=== PATIENT | male | born 1970 | race African-American/Black ===

== ENCOUNTER 2016-11-16 16:43 | Emergency (ER) | payer MEDICAID ==
[~2016-11-16] VITALS: Wt 82.5 kg
[~2016-11-16 16:43] MED LIST: ALBU8.5H5 INH; HYDR-3498 PO; PRED20TA PO
[2016-11-16] MEDS ORDERED: KETOROLAC 60 MG INJ IM STA (17:26)
[2016-11-16] MEDS ORDERED: CYCL-319 PO (17:29)
[2016-11-16] MEDS ORDERED: NAPR-260 PO (17:29)
--- NOTE | 2016-11-16 17:33 | ERD ---
ER Documentation Chief Complaint Date/Time DATE: 11/16/16 TIME: 17:31 Chief Complaint left lower backpain non traumatic for the past few months intermittent HPI This is a 46-year-old male presenting to the emergency room complaining of right lower back pain for the past few days. Patient states that he has left lower back pain for the past 6 months that comes and goes and now it started on the right. Patient denies any trauma. He rates the pain 7 out of 10. He states the pain starts when he sits. He denies any saddle anesthesia, bladder or bowel incontinence, or fever ROS All systems reviewed and are negative except as per history of present illness. Medications Home Meds Active Scripts Cyclobenzaprine Hcl* (Cyclobenzaprine Hcl*) 10 Mg Tablet, 10 MG PO TID, #15 TAB Prov:FROILAN CUELLO PA-C 11/16/16 Naproxen* (Naprosyn*) 500 Mg Tablet, 500 MG PO BID Y for PAIN AND/OR INFLAMMATION, #30 TAB Prov:FROILAN CUELLO PA-C 11/16/16 Albuterol Sulfate* (Albuterol Sulfate* HFA) 8.5 Gm Hfa.aer.ad, 1-2 PUFF INH Q4 Y for SHORTNESS OF BREATH, #1 EA Prov:JENNIFER CHAO 08/25/15 Prednisone* (Prednisone*) 20 Mg Tab, 40 MG PO DAILY for 4 Days, TAB Prov:JENNIFER CHAO 08/25/15 Hydrocodone Bit-Acetaminophen* ([place]*) 5-325 Mg Tab, 1 TAB PO Q6 Y for PAIN, # 20 TAB Prov:JENNIFER CHAO 06/01/15 Allergies Allergies: Coded Allergies: No Known Allergy (Unverified , 06/01/15) PMhx/Soc History of Surgery: No Anesthesia Reaction: No Hx Neurological Disorder: No Hx Respiratory Disorders: Yes (ASTHMA) Hx Cardiac Disorders: No Hx Psychiatric Problems: No Hx Miscellaneous Medical Probl: No Hx Alcohol Use: No Hx Substance Use: No Hx Tobacco Use: No Physical Exam Vitals Vital Signs Date Time Temp Pulse Resp B/P Pulse Ox O2 Delivery O2 Flow Rate FiO2 11/16/16 16:49 98.6 51 20 137/85 97 Physical Exam GENERAL: WD/WN, in no apparent distress, non-toxic appearing HENT: NC/AT EYES: Conjunctiva normal NECK: Supple PULM: Normal labored breathing CV: Good capillary refill GI: Non-distended, no guarding BACK: no deformities noted, normal spinal curvature, NTTP on lumbar region, non- tender on spine midline, pain with range of motion EXT: No clubbing, cyanosis, or edema NEURO: Moves on all fours, sensation intact, normal gait SKIN: intact PSYCH: Normal mood Results 24 hrs Current Medications Medications (Trade) Dose Ordered Sig/Sloan Route PRN Reason Start Time Stop Time Status Last Admin Dose Admin Ketorolac Tromethamine (Toradol) 60 mg ONCE STAT IM 11/16/16 17:26 11/16/16 17:27 DC Procedures/MDM 36-year-old male presents to the ER with BL lumbar back pain when sitting , low suspicion for spinal abscess, vertebral fracture, cauda equina syndrome, spinal stenosis due to physical examination. Patient was nontender to palpation on his back or his spine, pain was reproduced with sitting down. In the ED a Toradol injection 60 mg IM was given. Patient is neurovascularly intact. Prescriptions naproxen and Flexeril was given to patient, discussed to return to the ED if not improving as expected or follow-up with a primary care physician. Patient understood and agreed with this plan. Departure Diagnosis: Primary Impression: Back pain Back pain location: low back pain Chronicity: chronic Back pain laterality : bilateral Sciatica presence: without sciatica Qualified Code: M54.5 - Chronic bilateral low back pain without sciatica Condition: Stable Patient Instructions: Back Pain (Acute Or Chronic) Referrals: NO PRIMARY,CARE PHYSICIAN (PCP) [facility] YOU HAVE RECEIVED A MEDICAL SCREENING EXAM AND THE RESULTS INDICATE THAT YOU DO NOT HAVE A CONDITION THAT REQUIRES URGENT TREATMENT IN THE EMERGENCY DEPARTMENT. FURTHER EVALUATION AND TREATMENT OF YOUR CONDITION CAN WAIT UNTIL YOU ARE SEEN IN YOUR DOCTORS OFFICE WITHIN THE NEXT 1-2 DAYS. IT IS YOUR RESPONSIBILITY TO MAKE AN APPOINTMENT FOR FOLOW-UP CARE. IF YOU HAVE A PRIMARY DOCTOR --you should call your primary doctor and schedule an appointment IF YOU DO NOT HAVE A PRIMARY DOCTOR YOU CAN CALL OUR PHYSICIAN REFERRAL HOTLINE AT IF YOU CAN NOT AFFORD TO SEE A PHYSICIAN YOU CAN CHOSE FROM THE FOLLOWING [facility] [id number] [facility] [address] [facility] [address] [facility] [address] [facility] [address] [facility]. [facility] [address] Additional Instructions: FOLLOW UP WITH YOUR PRIMARY CARE PHYSICIAN TOMORROW.Return to this facility if you are not improving as expected. Take all medicines as directed. You have been given a medicine which may cause drowsiness.DO NOT DRIVE OR OPERATE DANGEROUS MACHINERY while taking this medicine! Return to this facility if you are not improving as expected. FROILAN CUELLO PA-C Nov 16, 2016 17:33
[2016-11-16 17:51] VITALS: BP 131/97; PULSE 55; RESP 16; TEMP 98.6
== END 2016-11-16 17:50 | disposition home or self-care (01) ==
LOC: FTE 16:43
DX: M54.5 Low back pain (principal); J45.909 Unspecified asthma, uncomplicated
CPT/HCPCS: 96372; J1885; Z7502